=== PATIENT | female | born 1970 | race Caucasian/White ===

== ENCOUNTER 2016-07-01 20:35 | Emergency (ER) | payer OTHER ==
--- NOTE | 2016-07-01 21:52 | ED CLINICAL REPORT ---
Clinical Report - Physicians/Mid Levels [facility] [address] [place] [address] 07/01/2016 20:37 Patient: CHELY CASAS Time Seen: 20:55. Arrived- By private vehicle. Historian- patient. HISTORY OF PRESENT ILLNESS Is still present. Chief Complaint: MIGRAINE HEADACHE. This started yesterday. It was gradual in onset and has been waxing/waning. Onset during light activity. It is described as similar to previous headaches. Not located in the right temporal region. Located in the frontal and occipital region. No neck pain. At its maximum, severity described as moderate. When seen in the E.D., severity described as moderate. Modifying factors: worsened by bright light and noise; relieved by rest, quiet room and dark room; (states she usually goes to the "walk-in clinic" and "gets a shot". Imitrex po has worked at home in the past (if taken at SPENCE onset)). The patient has had photophobia, nausea and vomiting. No numbness or weakness. No recent travel. Similar symptoms previously: Many times. ( Pt states that she hasn't had a Migraine since she finished chemotherapy for CA). Recent medical care: Not recently seen/assessed. REVIEW OF SYSTEMS No fever, sinus pressure, ear pain, sore throat or chest pain. No difficulty breathing, cough, abdominal pain, diarrhea or pain with urination. No skin rash or enlarged lymph nodes. All systems otherwise negative, except as recorded above. PAST HISTORY PCP: Dr Deras ([facility]) PROBLEMS: Thyroid Disease. Migraine Headache. Cancer. SURGERIES: Adenoidectomy. Back Surgery. Breast Surgery for CA Bilat. Tonsillectomy. Hysterectomy. Mastectomy. SOCIAL HISTORY Never smoker. No alcohol use or drug use. Is a local resident. ADDITIONAL NOTES The nursing notes have been reviewed. PHYSICAL EXAM Vital Signs: 07/01/2016 20:45 BP: 170/56. HR: 65. RR: 16. O2 saturation: 100%. Temp: 97.8 F. Pain level now: 9/10. Appearance: Alert. Patient in moderate distress. Head: No tenderness to palpation/percussion over the sinuses or temporal artery tenderness. Eyes: Photophobia present. Pupils equal, round and reactive to light. Eyes normal inspection. ENT: Pharynx normal. No pharyngeal erythema or tonsillar exudate. Neck: Normal inspection. Neck supple. No meningeal signs. No neck stiffness or nuchal rigidity. Negative Brudzinski's sign and Kernig's sign. No carotid bruit. CVS: Normal heart rate and rhythm. Heart sounds normal. Pulses normal. Respiratory: No respiratory distress. Breath sounds normal. Abdomen: Soft and nontender. Back: Normal inspection. Skin: Skin warm and dry. Normal skin color. No rash. Normal skin turgor. Extremities: Extremities exhibit normal ROM. No lower extremity edema. Neuro: Oriented X 3. Alert. Mood/affect normal. Speech normal. Cranial nerves normal (as tested). No cerebellar findings. No motor deficit. No sensory deficit. Reflexes normal. Reflex exam: right biceps 2+, left biceps 2+, right patellar 2+, left patellar 2+, right Achilles 1+ and left Achilles 1+. LABS, X-RAYS, AND EKG Pulse Oximetry: 07/01/2016 20:45 O2 saturation: 100%. (FIO2 - room air). Interpretation: normal. PROGRESS AND PROCEDURES Course of Care: Dilaudid 2 mg with Phenergan 25 mg IM given. There is nothing new or different about her current SPENCE. She has been essentially SPENCE free since her hyst / salpingoophorectomy and chemo for breast cancer - about 4 years ago. She has had multiple head CT's by her report. The current SPENCE is exactly like her prior migraine SPENCE's which she had at a fairly high frequency in the past. She is strongly encouraged to f/u with her pcp and oncologist. No emergent indication for CT or LP Patient is stable. Physical exam findings are improved. Symptoms much better. Patient/family counseled. Disposition: Discharged. Condition: stable and improved. CLINICAL IMPRESSION Acute migraine headache without aura. No status migrainosus. Not poorly controlled or refractory to treatment. Essential hypertension. INSTRUCTIONS Rest. Do not work for two days. No alcohol until released. Warnings: Further evaluation is necessary in order to conduct further tests and assess the possibility of serious illness. It is very important to follow up with a physician. SEDATIVE MEDICATION: You were given sedative medication during your visit. Do not drive or operate dangerous machinery. CONTROLLED SUBSTANCE WARNINGS. GENERAL WARNINGS: Return or contact your physician immediately if your condition worsens or changes unexpectedly, if not improving as expected, or if other problems arise. Prescription Medications: Hydrocodone/APAP 5mg / 325mg: take 1 orally every 8 hours as needed for pain. Dispense ten (10). No refill. Phenergan Tablets 25 mg: Take 1 tablet orally every 6 hours as needed for nausea and vomiting. Dispense fifteen (15). No refills. Substitution is permissible. Follow-up: Follow up with your doctor [place] and your oncologist in about two days. Call for the next available appointment. Screening today revealed the patient's blood pressure to be in the hypertensive range. The patient should follow up with a primary care provider for blood pressure management. (Electronically signed by Tree Castaneda DO 07/02/2016 4:53)
--- NOTE | 2016-07-01 21:52 | ED NURSING NOTES ---
Clinical Report - Nurses [facility] [address] [place] [address] 07/01/2016 20:37 Patient: CHELY CASAS TRIAGE Triage time 20:45 Jul 01 2016. Acuity: LEVEL 3. Chief Complaint: MIGRAINE HEADACHE. Alert. JEAN CARLOS COMA SCORE: [place] Coma Scale: 15- eyes open spontaneously (4); best verbal response- oriented x 4 (5); best motor response- obeys commands (6). --20:55 Chuck Patterson R.N. 20:45 07/01/16. BP: 170/56. HR: 65. RR: 16. O2 saturation: 100% on room air. Temp: 97.8 F (oral). Pain level now: 10. Additional comments: SPENCE pain. --20:55 Chuck Patterson R.N. Weight: 73.9 kg stated. Height/Length: 61 inches Per Patient. BMI: 30.8. --20:51 Chuck Patterson R.N. Medications None. --20:49 Chuck Patterson R.N. Allergies Dexamethasone. Definite Severe (pancreatitis) --20:50 Chuck Patterson R.N. History Arrived by private vehicle. Historian: patient. Accompanied by family and son. [place] ( Migraine SPENCE associated with N/V. Pt states that she hasn't had a Migraine since she finished chemotherapy for CA.). This started today. Patient was last known well (yesterday). She has had nausea and vomiting. 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 Symptoms did not improve after treatment. PAST MEDICAL HX: Immunizations: status is unknown. The patient has had a hysterectomy. SOCIAL HX: Never smoker. No alcohol use or drug use. No recent travel. No infectious disease exposure. No known contact with a sick individual. ABUSE ASSESSMENT: No report of abuse. FALL RISK ASSESSMENT: Fall risk assessment completed. No fall risk identified. NUTRITIONAL RISK ASSESSMENT: The nutritional risk assessment revealed no deficiencies. FUNCTIONAL ASSESSMENT: Functional assessment: no impairments noted. LEARNING NEEDS ASSESSMENT: The learning needs assessment revealed no barriers. SKIN INTEGRITY ASSESSMENT: Skin integrity risk assessment completed. No skin integrity risk identified. --20:55 Chuck Patterson R.N. PROBLEMS: Thyroid Disease. Migraine Headache. Cancer. --20:54 Chuck Patterson R.N. ADDITIONAL SURGERIES: Adenoidectomy. Back Surgery. Breast Surgery for CA Bilat. Tonsillectomy. --20:54 Chuck Patterson R.N. Hysterectomy. Mastectomy. --20:55 Chuck Patterson R.N. Interventions ID band on patient. To treatment room. --20:55 Chuck Patterson R.N. PHYSICAL ASSESSMENT Ambulatory to room. GENERAL / NEURO / PSYCH: Alert. Oriented X 4. Speech within normal limits. HEENT: No facial asymmetry noted. RESPIRATORY: Respirations not labored. Breath sounds within normal limits. CVS: Capillary refill less than 2 seconds. GI / : Abdomen soft and nontender. SKIN: Skin is warm and dry. --20:56 Chuck Patterson R.N. NURSING PROGRESS NOTES Reassurance given. Lights dimmed. Patient identifiers checked. Call light placed in reach. Side rails up x 1. Bed placed in lowest position. Brakes of bed on. Patient ready for evaluation- chart flagged and ED physician and PA notified. --20:56 Chuck Patterson R.N. 20:57 07/01/16. BP: 151/81. --20:57 Chuck Patterson R.N. 21:10 07/01/2016 Dilaudid (HYDROmorphone HCl PF) IM 2 mg given. Given in the right ventral gluteus. Allergies verified, confirmed 5 rights and sedative warning given to the patient. --21:12 Chuck Sharma R.N. 21:10 07/01/2016 Phenergan (Promethazine HCl) IM 25 mg given. Given in the right ventral gluteus. Allergies verified, confirmed 5 rights and sedative warning given to the patient. --21:12 Chuck Sharma R.N. 21:47. The patient is calm and resting quietly. Overall patient status is improved- she states feels better. GENERAL / NEURO / PSYCH: Alert. Oriented X 4. RESPIRATORY: No respiratory distress. SKIN: Skin is warm and dry. Skin color within normal limits. --21:50 Chuck Sharma R.N. DISPOSITION / DISCHARGE Departure time: 21:49. Condition at departure: stable. No learning barriers present. Discharge instructions provided and reviewed with the patient and family. Reviewed medication(s) side effects, precautions, dosing and course information. Prescription(s) given to the patient. Patient verbalized understanding. Written instructions provided in Bel[place]ian. The patient was discharged home and accompanied by family. She left the Emergency Department ambulatory and via private vehicle. Family member driving. FALL RISK ASSESSMENT: Fall risk assessment completed. No fall risk identified. --21:50 Chuck Sharma R.N. 21:48 07/01/16. BP: 162/82. HR: 70. RR: 16. O2 saturation: 100% on room air. Pain level now: 5/10. Additional comments: patient reports pain improving . --21:50 Chuck Sharma R.N. Locked/Released at 07/01/2016 21:50 by Chuck Sharma R.N.
--- NOTE | 2016-07-01 21:52 | ED NURSING NOTES ---
Clinical Report - Nurses [facility] [address] [place] [address] 07/01/2016 20:37 Patient: CHELY CASAS TRIAGE Triage time 20:45 Jul 01 2016. Acuity: LEVEL 3. Chief Complaint: MIGRAINE HEADACHE. Alert. JEAN CARLOS COMA SCORE: [place] Coma Scale: 15- eyes open spontaneously (4); best verbal response- oriented x 4 (5); best motor response- obeys commands (6). --20:55 Chuck Patterson R.N. 20:45 07/01/16. BP: 170/56. HR: 65. RR: 16. O2 saturation: 100% on room air. Temp: 97.8 F (oral). Pain level now: 10. Additional comments: SPENCE pain. --20:55 Chuck Patterson R.N. Weight: 73.9 kg stated. Height/Length: 61 inches Per Patient. BMI: 30.8. --20:51 Chuck Patterson R.N. Medications None. --20:49 Chuck Patterson R.N. Allergies Dexamethasone. Definite Severe (pancreatitis) --20:50 Chuck Patterson R.N. History Arrived by private vehicle. Historian: patient. Accompanied by family and son. [place] ( Migraine SPENCE associated with N/V. Pt states that she hasn't had a Migraine since she finished chemotherapy for CA.). This started today. Patient was last known well (yesterday). She has had nausea and vomiting. 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 Symptoms did not improve after treatment. PAST MEDICAL HX: Immunizations: status is unknown. The patient has had a hysterectomy. SOCIAL HX: Never smoker. No alcohol use or drug use. No recent travel. No infectious disease exposure. No known contact with a sick individual. ABUSE ASSESSMENT: No report of abuse. FALL RISK ASSESSMENT: Fall risk assessment completed. No fall risk identified. NUTRITIONAL RISK ASSESSMENT: The nutritional risk assessment revealed no deficiencies. FUNCTIONAL ASSESSMENT: Functional assessment: no impairments noted. LEARNING NEEDS ASSESSMENT: The learning needs assessment revealed no barriers. SKIN INTEGRITY ASSESSMENT: Skin integrity risk assessment completed. No skin integrity risk identified. --20:55 Chuck Patterson R.N. PROBLEMS: Thyroid Disease. Migraine Headache. Cancer. --20:54 Chuck Patterson R.N. ADDITIONAL SURGERIES: Adenoidectomy. Back Surgery. Breast Surgery for CA Bilat. Tonsillectomy. --20:54 Chuck Patterson R.N. Hysterectomy. Mastectomy. --20:55 Chuck Patterson R.N. Interventions ID band on patient. To treatment room. --20:55 Chuck Patterson R.N. PHYSICAL ASSESSMENT Ambulatory to room. GENERAL / NEURO / PSYCH: Alert. Oriented X 4. Speech within normal limits. HEENT: No facial asymmetry noted. RESPIRATORY: Respirations not labored. Breath sounds within normal limits. CVS: Capillary refill less than 2 seconds. GI / : Abdomen soft and nontender. SKIN: Skin is warm and dry. --20:56 Chuck Patterson R.N. NURSING PROGRESS NOTES Reassurance given. Lights dimmed. Patient identifiers checked. Call light placed in reach. Side rails up x 1. Bed placed in lowest position. Brakes of bed on. Patient ready for evaluation- chart flagged and ED physician and PA notified. --20:56 Chuck Patterson R.N. 20:57 07/01/16. BP: 151/81. --20:57 Chuck Patterson R.N. 21:10 07/01/2016 Dilaudid (HYDROmorphone HCl PF) IM 2 mg given. Given in the right ventral gluteus. Allergies verified, confirmed 5 rights and sedative warning given to the patient. --21:12 Chuck Sharma R.N. 21:10 07/01/2016 Phenergan (Promethazine HCl) IM 25 mg given. Given in the right ventral gluteus. Allergies verified, confirmed 5 rights and sedative warning given to the patient. --21:12 Chuck Sharma R.N. 21:47. The patient is calm and resting quietly. Overall patient status is improved- she states feels better. GENERAL / NEURO / PSYCH: Alert. Oriented X 4. RESPIRATORY: No respiratory distress. SKIN: Skin is warm and dry. Skin color within normal limits. --21:50 Chuck Sharma R.N. DISPOSITION / DISCHARGE Departure time: 21:49. Condition at departure: stable. No learning barriers present. Discharge instructions provided and reviewed with the patient and family. Reviewed medication(s) side effects, precautions, dosing and course information. Prescription(s) given to the patient. Patient verbalized understanding. Written instructions provided in Bulgarian. The patient was discharged home and accompanied by family. She left the Emergency Department ambulatory and via private vehicle. Family member driving. FALL RISK ASSESSMENT: Fall risk assessment completed. No fall risk identified. --21:50 Chuck Sharma R.N. 21:48 07/01/16. BP: 162/82. HR: 70. RR: 16. O2 saturation: 100% on room air. Pain level now: 5/10. Additional comments: patient reports pain improving . --21:50 Chuck Sharma R.N. Locked/Released at 07/01/2016 21:50 by Chuck Sharma R.N.
--- NOTE | 2016-07-01 21:52 | ED ORDER SUMMARY ---
..... Patient: CHELY ACSAS OrderSheet [facility] VisitID: [id number] [address] [place] [address] 46y, F Registration Date/Time: 07/01/2016 ORDER SHEET Weight: 73.9 kg (stated) Allergies: Dexamethasone GENERAL ORDERS: MEDICATION ORDERS: Dilaudid IM 2 mg (HIGH ALERT MEDICATION, NOW) (21:04 07/01/2016 claudette SPIVEY) (Ack 21:06 JQuivey R.N.) (21:12 JQuivey R.N.) Phenergan IM 25 mg (HIGH ALERT MEDICATION, NOW) (21:04 07/01/2016 Rigo SPIVEY) (Ack 21:06 JQuivey R.N.) (21:12 JQuivey R.N.) IV FLUIDS: ORDER SHEET NOTES: [Electronically signed by Chuck Sharma R.N. (21:50 07/01/2016)] [Electronically locked/signed by Chuck Sharma R.N. (21:50 07/01/2016)]
--- NOTE | 2016-07-01 21:52 | ED ORDER SUMMARY ---
..... Patient: CHELY CASAS OrderSheet VisitID: [id number] [address] [place] [address] 46y, F Registration Date/Time: 07/01/2016 ORDER SHEET Weight: 73.9 kg (stated) Allergies: Dexamethasone GENERAL ORDERS: MEDICATION ORDERS: Dilaudid IM 2 mg (HIGH ALERT MEDICATION, NOW) (21:04 07/01/2016 claudette SPIVEY) (Ack 21:06 JQuivey R.N.) (21:12 JQuivey R.N.) Phenergan IM 25 mg (HIGH ALERT MEDICATION, NOW) (21:04 07/01/2016 Rigo SPIVEY) (Ack 21:06 JQuivey R.N.) (21:12 JQuivey R.N.) IV FLUIDS: ORDER SHEET NOTES: [Electronically signed by Chuck Sharma R.N. (21:50 07/01/2016)] [Electronically locked/signed by Chuck Sharma R.N. (21:50 07/01/2016)]
--- NOTE | 2016-07-02 04:53 | ED MAR SUMMARY ---
..... Medication Administration Record [facility] [address] [place] [address] Patient: CHELY CASAS Visit ID: [id number] 46y, F Weight: 73.9 kg Height/Length: 61 in BMI: 30.8 ALLERGIES: Dexamethasone Given 21:07/01/2016 Chuck Sharma, R.N. Medication Administered: DILAUDID [IM] (HYDROMORPHONE HCL PF), Dose: 2 mg IM. Medication Ordered: Dilaudid IM 2 mg (HIGH ALERT MEDICATION, NOW). Given 21:07/01/2016 Chuck Sharma, R.N. Medication Administered: PHENERGAN [IM] (PROMETHAZINE HCL), Dose: 25 mg IM. Medication Ordered: Phenergan IM 25 mg (HIGH ALERT MEDICATION, NOW).
--- NOTE | 2016-07-02 04:53 | ED MED RECONCILIATION SUMMARY ---
Patient: CHELY CASAS Medication Reconciliation Report [facility] VisitID: [id number] [address] [place] [address] 46y, F Registration Date/Time: 07/01/2016 Weight: 73.9 kg Height/Length: 61 in. BMI: 30.8 ALLERGIES: Dexamethasone The patient's Home Medications are listed below: NONE. The source(s) of the original Home Medication information: Not obtained. The following Medications were given to the patient in the Emergency Department: Dilaudid [IM] IM 2 mg, administered: 07/01/2016 9:10:00 PM Phenergan [IM] IM 25 mg, administered: 07/01/2016 9:10:00 PM The following Medications were prescribed to the patient: Hydrocodone/APAP 5mg / 325mg: take 1 orally every 8 hours as needed for pain. Dispense ten (10). No refill. -- Tree Castaneda DO Phenergan Tablets 25 mg: Take 1 tablet orally every 6 hours as needed for nausea and vomiting. Dispense fifteen (15). No refills. Substitution is permissible. -- Tree Castaneda DO
--- NOTE | 2016-07-02 04:53 | ED DISCHARGE INSTRUCTIONS ---
Patient: CHELY CASAS General Instructions [facility] VisitID: [id number] [place] [address] 46y, F Registration Date/Time: 07/01/2016 Acute migraine headache without aura. No status migrainosus. Not poorly controlled or refractory to treatment. Essential hypertension. INSTRUCTIONS Rest. Do not work for two days. No alcohol until released. Warnings: Further evaluation is necessary in order to conduct further tests and assess the possibility of serious illness. It is very important to follow up with a physician. SEDATIVE MEDICATION: You were given sedative medication during your visit. Do not drive or operate dangerous machinery. CONTROLLED SUBSTANCE WARNINGS. GENERAL WARNINGS: Return or contact your physician immediately if your condition worsens or changes unexpectedly, if not improving as expected, or if other problems arise. Prescription Medications: Hydrocodone/APAP 5mg / 325mg: take 1 orally every 8 hours as needed for pain. Dispense ten (10). No refill. Phenergan Tablets 25 mg: Take 1 tablet orally every 6 hours as needed for nausea and vomiting. Dispense fifteen (15). No refills. Substitution is permissible. Follow-up: Follow up with your doctor Augsuta and your oncologist in about two days. Call for the next available appointment. Screening today revealed the patient's blood pressure to be in the hypertensive range. The patient should follow up with a primary care provider for blood pressure management. ADDITIONAL INFORMATION Migraine Headache Migraine headaches are related to changes in blood flow to the brain. This causes throbbing or constant pain on one or both sides of the head. The pain may last from a few hours to several days. There is usually nausea, vomiting, sensitivity to light and sound, and blurred vision. A migraine attack may be triggered by emotional stress, hormone changes during the menstrual cycle, oral contraceptives, alcohol use, certain foods containing tyramine, eye strain, weather changes, missing meals, or too little or too much sleep. Home Care For This Headache: 1) If you were given pain medicine for this headache, do not drive yourself home . Arrange for a ride, instead. When you get home, try to sleep. You should feel much better when you wake up. 2) Migraine headaches may improve with an ice pack on the forehead or at the base of the skull. Heat to the back of your neck may relieve any neck spasm. 3) Drink only clear liquids or eat a very light diet to avoid nausea/vomiting until symptoms improve. Preventing Future Headaches: 1) Pay attention to those factors that seem to trigger your headache. Try to avoid them when you can. If you have frequent headaches, it is useful to keep a diary of what you were doing, feeling or eating in the hours before each attack. Show this to your doctor to help find the cause of your headaches. a) If you feel that stress is a factor in your headaches, look at the sources of stress in your life. Find ways to release the build-up of those stresses by using regular exercise, relaxation methods (yoga, meditation), bio-feedback or simply taking time-out for yourself. For more information about this, consult your doctor or go to a local bookstore and review books and tapes on this subject. b) Tyramine is a substance present in the following foods : chocolate, yogurt, all cheeses except cottage cheese and cream cheese. smoked or pickled fish and meat (including gabriel, caviar, bologna, pepperoni, salami), liver, avocados, bananas, figs, raisins, and red wine. Be aware that these foods may trigger a migraine in some persons. Try taking these foods out of your diet for 1-2 months to see if this reduces headache frequency. Treating Future Attacks: 1) At the first sign of a headache, take time out if possible. Find a quiet, dark, comfortable place to sit or lie down. Let yourself relax or sleep. 2) An ice pack on the forehead or area of greatest pain may help. If you are having muscle spasm and tightness of the neck, a heating pad and massage to this area may be helpful. 3) If you have been prescribed a medicine to stop a migraine headache, use this at the very first warning sign of the headache (aura or initial pain) for best results. Follow Up with your doctor if the headache is not better within the next 24 hours. If you have frequent headaches you should discuss a treatment plan with your primary care doctor. Ask if you can have medicine to take at home the next time you get a bad headache. Poorly controlled chronic headaches may require a referral to a neurologist (headache specialist). Get Prompt Medical Attention if any of the following occur: Your head pain gets worse, or does not improve within 24 hours Repeated vomiting (cant keep liquids down) Sinus or ear or throat pain (not already reported) Fever of 100.4 F (38 C) or higher, or as directed by your healthcare provider Stiff neck Extreme drowsiness, confusion or fainting Dizziness, vertigo (dizziness with spinning sensation) Weakness of an arm or leg or one side of the face Difficulty with speech or vision High Blood Pressure -- To Be Confirmed [No Tx] Your blood pressure was higher today than normal. Sometimes anxiety or pain can cause a temporary rise in blood pressure that later returns to normal. If your blood pressure is high on one measurement, this does not mean that you have hypertension (a chronic illness). However, you must have your blood pressure measured again within the next few days to find out if its still high. A normal blood pressure is 120/80 or less. The first (top) number is the "systolic" pressure. The second (bottom) number is the "diastolic" pressure. Hypertension exists when either the top number is 140 or higher, OR the bottom number is 90 or higher on repeated measurements. Blood pressure in the range of 120-140 (systolic) or 80-89 (diastolic) is considered "pre-hypertension". This means your are at risk for getting hypertension. You should have regular blood pressure checks to be sure your blood pressure is not rising. Home Care: Measure your blood pressure on 3 different days and write down the results. This can be done at your doctor's office or this facility. Some pharmacies and grocery stores offer automated blood pressure machines for your use. Follow Up: If your blood pressure is "high" (over 120/80) on 2 out of 3 days, you will need to follow up with your doctor for further evaluation and treatment. DO NOT PUT THIS OFF! Untreated high blood pressure increases the risk for heart attack, also known as acute myocardial infarction, or AMI, and stroke. It is a treatable condition. Get Prompt Medical Attention if any of the following occur: Chest pain or shortness of breath Severe headache Throbbing or rushing sound in the ears Nosebleed Sudden severe abdominal pain Extreme drowsiness, confusion or fainting Dizziness or vertigo (dizziness with spinning sensation) Weakness of an arm or leg or one side of the face Difficulty with speech or vision Hydrocodone Bitartrate, Acetaminophen Oral tablet What is this medicine? ACETAMINOPHEN; HYDROCODONE (a set a ENZO jr fen; beth droe KOE done) is a pain reliever. It is used to treat mild to moderate pain. How should I use this medicine? Take this medicine by mouth. Swallow it with a full glass of water. Follow the directions on the prescription label. If the medicine upsets your stomach, take the medicine with food or milk. Do not take more than you are told to take. Talk to your grocery checker regarding the use of this medicine in children. This medicine is not approved for use in children. What side effects may I notice from receiving this medicine? Side effects that you should report to your doctor or health home care physical therapist as soon as possible: allergic reactions like skin rash, itching or hives, swelling of the face, lips, or tongue breathing problems confusion feeling faint or lightheaded, falls stomach pain yellowing of the eyes or skin Side effects that usually do not require medical attention (report to your doctor or health home care physical therapist if they continue or are bothersome): nausea, vomiting stomach upset What may interact with this medicine? alcohol antihistamines isoniazid medicines for depression, anxiety, or psychotic disturbances medicines for sleep muscle relaxants naltrexone narcotic medicines (opiates) for pain phenobarbital ritonavir tramadol What if I miss a dose? If you miss a dose, take it as soon as you can. If it is almost time for your next dose, take only that dose. Do not take double or extra doses. Where should I keep my medicine? Keep out of the reach of children. This medicine can be abused. Keep your medicine in a safe place to protect it from theft. Do not share this medicine with anyone. Selling or giving away this medicine is dangerous and against the law. Store at room temperature between 15 and 30 degrees C (59 and 86 degrees F). Protect from light. Keep container tightly closed. Throw away any unused medicine after the expiration date. Discard unused medicine and used packaging carefully. Pets and children can be harmed if they find used or lost packages. What should I tell my health care provider before I take this medicine? They need to know if you have any of these conditions: brain tumor Crohn's disease, inflammatory bowel disease, or ulcerative colitis drink more than 3 alcohol-containing drinks per day drug abuse or addiction head injury heart or circulation problems kidney disease or problems going to the bathroom liver disease lung disease, asthma, or breathing problems an unusual or allergic reaction to acetaminophen, hydrocodone, other opioid analgesics, other medicines, foods, dyes, or preservatives or trying to get breast-feeding What should I watch for while using this medicine? Tell your doctor or health home care physical therapist if your pain does not go away, if it gets worse, or if you have new or a different type of pain. You may develop tolerance to the medicine. Tolerance means that you will need a higher dose of the medicine for pain relief. Tolerance is normal and is expected if you take the medicine for a long time. Do not suddenly stop taking your medicine because you may develop a severe reaction. Your body becomes used to the medicine. This does NOT mean you are addicted. Addiction is a behavior related to getting and using a drug for a non-medical reason. If you have pain, you have a medical reason to take pain medicine. Your doctor will tell you how much medicine to take. If your doctor wants you to stop the medicine, the dose will be slowly lowered over time to avoid any side effects. You may get drowsy or dizzy when you first start taking the medicine or change doses. Do not drive, use machinery, or do anything that may be dangerous until you know how the medicine affects you. Stand or sit up slowly. There are different types of narcotic medicines (opiates) for pain. If you take more than one type at the same time, you may have more side effects. Give your health care provider a list of all medicines you use. Your doctor will tell you how much medicine to take. Do not take more medicine than directed. Call emergency for help if you have problems breathing. The medicine will cause constipation. Try to have a bowel movement at least every 2 to 3 days. If you do not have a bowel movement for 3 days, call your doctor or health home care physical therapist. Too much acetaminophen can be very dangerous. Do not take Tylenol (acetaminophen) or medicines that contain acetaminophen with this medicine. Many non-prescription medicines contain acetaminophen. Always read the labels carefully. Promethazine Hydrochloride Oral tablet What is this medicine? PROMETHAZINE (proe METH a zeen) is an antihistamine. It is used to treat allergic reactions and to treat or prevent nausea and vomiting from illness or motion sickness. It is also used to make you sleep before surgery, and to help treat pain or nausea after surgery. How should I use this medicine? Take this medicine by mouth with a glass of water. Follow the directions on the prescription label. Take your doses at regular intervals. Do not take your medicine more often than directed. Talk to your grocery checker regarding the use of this medicine in children. Special care may be needed. This medicine should not be given to infants and children younger than 2 years old. What side effects may I notice from receiving this medicine? Side effects that you should report to your doctor or health home care physical therapist as soon as possible: blurred vision irregular heartbeat, palpitations or chest pain muscle or facial twitches pain or difficulty passing urine seizures skin rash slowed or shallow breathing unusual bleeding or bruising yellowing of the eyes or skin Side effects that usually do not require medical attention (report to your doctor or health home care physical therapist if they continue or are bothersome): headache nightmares, agitation, nervousness, excitability, not able to sleep (these are more likely in children) stuffy nose What may interact with this medicine? Do not take this medicine with any of the following medications: medicines called MAO Inhibitors like Nardil, Parnate, Marplan, Eldepryl other phenothiazines like trimethobenzamide This medicine may also interact with the following medications: barbiturates like phenobarbital bromocriptine certain antidepressants certain antihistamines used in allergy or cold medicines epinephrine levodopa medicines for sleep medicines for mental problems and psychotic disturbances medicines for movement abnormalities as in Parkinson's disease, or for gastrointestinal problems muscle relaxants prescription pain medicines What if I miss a dose? If you miss a dose, take it as soon as you can. If it is almost time for your next dose, take only that dose. Do not take double or extra doses. Where should I keep my medicine? Keep out of the reach of children. Store at room temperature, between 20 and 25 degrees C (68 and 77 degrees F). Protect from light. Throw away any unused medicine after the expiration date. What should I tell my health care provider before I take this medicine? They need to know if you have any of these conditions: glaucoma high blood pressure or heart disease kidney disease liver disease lung or breathing disease, like asthma prostate trouble pain or difficulty passing urine seizures an unusual or allergic reaction to promethazine or phenothiazines, other medicines, foods, dyes, or preservatives or trying to get breast-feeding What should I watch for while using this medicine? Tell your doctor or health home care physical therapist if your symptoms do not start to get better in 1 to 2 days. You may get drowsy or dizzy. Do not drive, use machinery, or do anything that needs mental alertness until you know how this medicine affects you. To reduce the risk of dizzy or fainting spells, do not stand or sit up quickly, especially if you are an older patient. Alcohol may increase dizziness and drowsiness. Avoid alcoholic drinks. Your mouth may get dry. Chewing sugarless gum or sucking hard candy, and drinking plenty of water may help. Contact your doctor if the problem does not go away or is severe. This medicine may cause dry eyes and blurred vision. If you wear contact lenses you may feel some discomfort. Lubricating drops may help. See your eye doctor if the problem does not go away or is severe. This medicine can make you more sensitive to the sun. Keep out of the sun. If you cannot avoid being in the sun, wear protective clothing and use sunscreen. Do not use sun lamps or tanning beds/booths. If you are diabetic, check your blood-sugar levels regularly. You have been given the following additional information: Headache, Migraine (Classical) Hypertension, To Be Confirmed Hydrocodone Bitartrate, Acetaminophen Oral tablet Promethazine Hydrochloride Oral tablet Rest. Do not work for two days. (Electronically signed by Tree Castaneda DO 07/02/2016 4:53)
--- NOTE | 2016-07-02 04:53 | ED MAR SUMMARY ---
..... Medication Administration Record [facility] [address] [place] [address] Patient: CHELY CASAS Visit ID: [id number] 46y, F Weight: 73.9 kg Height/Length: 61 in BMI: 30.8 ALLERGIES: Dexamethasone Given 21:07/01/2016 Chuck Sharma, R.N. Medication Administered: DILAUDID [IM] (HYDROMORPHONE HCL PF), Dose: 2 mg IM. Medication Ordered: Dilaudid IM 2 mg (HIGH ALERT MEDICATION, NOW). Given 21:07/01/2016 Chuck Sharma, R.N. Medication Administered: PHENERGAN [IM] (PROMETHAZINE HCL), Dose: 25 mg IM. Medication Ordered: Phenergan IM 25 mg (HIGH ALERT MEDICATION, NOW).
--- NOTE | 2016-07-02 04:53 | ED MED RECONCILIATION SUMMARY ---
Patient: CHELY CASAS Medication Reconciliation Report [facility] VisitID: [id number] [address] [place] [address] 46y, F Registration Date/Time: 07/01/2016 Weight: 73.9 kg Height/Length: 61 in. BMI: 30.8 ALLERGIES: Dexamethasone The patient's Home Medications are listed below: NONE. The source(s) of the original Home Medication information: Not obtained. The following Medications were given to the patient in the Emergency Department: Dilaudid [IM] IM 2 mg, administered: 07/01/2016 9:10:00 PM Phenergan [IM] IM 25 mg, administered: 07/01/2016 9:10:00 PM The following Medications were prescribed to the patient: Hydrocodone/APAP 5mg / 325mg: take 1 orally every 8 hours as needed for pain. Dispense ten (10). No refill. -- Tree Castaneda DO Phenergan Tablets 25 mg: Take 1 tablet orally every 6 hours as needed for nausea and vomiting. Dispense fifteen (15). No refills. Substitution is permissible. -- Tree Castaneda DO
== END 2016-07-01 21:49 | disposition home or self-care (01) ==
LOC: ANTICOAG S 20:35 → ED SRH 20:37 → ANTICOAG S 20:37 → ED SRH 21:49
DX: G43.009 Migraine without aura, not intractable, without status migrainosus (principal); I10 Essential (primary) hypertension; E07.9 Disorder of thyroid, unspecified; Z85.3 Personal history of malignant neoplasm of breast; Z88.8 Allergy status to other drugs, medicaments and biological substances